=== PATIENT | male | born 1960 | race Caucasian/White ===

== ENCOUNTER 2019-04-05 09:59 | Observation (INO) | payer BC ==
[2019-04-05] MEDS ORDERED: Heparin 2 UNITS/ML IVPREMIX* 2,000 ML IV ONE (12:01)
[2019-04-05 12:02] LABS: BUN/Creatinine Ratio 22.6 (8-20); Calcium 9.7 mg/dL (8.6-10.3); EGFR African American 100.3 (>60); EGFR Non-African American 82.9 (>60); Potassium 4.4 mmol/L (3.5-5.0)
[2019-04-05] MEDS ORDERED: Iohexol 350 (CONTRAST) 200 ML MDV IV ONE (12:02)
[2019-04-05] MEDS ORDERED: Lidocaine 1% INJ* 10 MG/ML 30 ML SDV ONE (12:02)
[2019-04-05] MEDS ORDERED: Heparin(*) 1000 UNIT/ML 10 ML VIAL CATH LAB IV ONE (12:48)
[2019-04-05] MEDS ORDERED: nitroGLYCERIN DRIP* 25,000 MCG/250 ML BTL ONE (12:49)
[2019-04-05] MEDS ORDERED: VERAPAMIL 2.5 MG/ML 2 ML VIAL ** 5 mg/2 ml ONE (12:49)
[2019-04-05] MEDS ORDERED: Midazolam* 1 MG/ML 5 ML VIAL (5 MG) ONE (12:50)
[2019-04-05] MEDS ORDERED: fentaNYL* 50 MCG/ML 2 ML VIAL (100 MCG VIAL) ONE (12:50)
[2019-04-05] MEDS ORDERED: Ticagrelor* 90 MG TAB PO ONE (14:13)
[2019-04-05] MEDS ORDERED: Nitroglycerin TAB 0.4 MG* 0.4 MG TAB SL PRN (15:16)
[2019-04-05] MEDS ORDERED: NS 0.9% 1000 ML** 1,000 ML IV SCH (15:30)
[2019-04-05 16:11] LABS: CRP High Sensitivity 0.72 mg/L (<2.00); HDL Cholesterol 39.7 mg/dL
[2019-04-05] MEDS: Metoprolol Tartrate TAB* 25 MG PO SCH (21:02)
[2019-04-05] MEDS: Ticagrelor* 90 MG TAB PO SCH (21:02)
[2019-04-06 06:45] LABS: BUN/Creatinine Ratio 16.8 (8-20); Calcium 9.7 mg/dL (8.6-10.3); EGFR African American 85.3 (>60); EGFR Non-African American 70.5 (>60); HDL Cholesterol 38.4 mg/dL; Potassium 4.3 mmol/L (3.5-5.0)
[2019-04-06] MEDS ORDERED: Atorvastatin* 40 MG TAB PO SCH (09:00)
[2019-04-06] MEDS ORDERED: Aspirin 81 mg CHEW TAB* 81 MG TAB.CHEW PO SCH (09:00)
[2019-04-06] MEDS ORDERED: Influenza VAC *QUAD* 2019-20* 0.5 ML SYRINGE IM ONE (09:00)
[2019-04-06] MEDS ORDERED: Sertraline* 50 MG TAB PO SCH (09:00)
[2019-04-06] MEDS ORDERED: ATOMOXETINE 25 MG PO SCH (09:00)
[2019-04-06] MEDS ORDERED: Losartan TAB* 25 MG PO SCH (09:00)
[2019-04-06] MEDS: Ticagrelor* 90 MG TAB PO SCH (09:13)
[2019-04-06] MEDS: Metoprolol Tartrate TAB* 25 MG PO SCH (09:14)
[2019-04-06 11:30] VITALS: BP 135/85
--- NOTE | 2019-04-06 13:38 | CATH ---
CC: Dr. Nuñez; Dr. Dow STENT REPORT: DATE OF PROCEDURE: 04/05/19 PRIMARY: Dr. Nuñez. STEEL SHOT HEADER OPERATOR: Dr. Dow. PROCEDURES: Right radial artery access, bilateral selective coronary cineangiography, left heart cat heterization, left ventriculography, stent placement to LAD 3.0 x 12 Synergy drug-eluting stent, post dilated with 3 x 12 NC. HISTORY: A 58-year-old male with functional class I angina, but relatively high risk stress exercise study with precordial ST elevation with mild angina, imaging revealed an anterior as well as inferio r perfusion defect consistent with multivessel disease. PROCEDURE ACCESS: Right radial artery sheath 6-F slender. MEDICATIONS: 1. Subcu lidocaine. 2. IV Versed. 3. IV fentanyl. 4. Heparin 3000 units. 5. Nitroglycerin 300 mcg. 6. Verapamil 3 mg IA. 7. Brilinta 180 mg loading dose. 8. Heparin 4000 units IV. DIAGNOSTIC CATHETER: 5F TIG4, 5F pigtail guiding catheter LAD, 6FVL 3.5 wire 14 BMW used to deploy 3 x 12 Synergy drug-eluting stent in the LAD just beyond the small first diagonal. It was postdilate d with a 3 x 12 NC balloon to 16 atmospheres 30 seconds. HEMODYNAMICS: LV 115/6-14, no aortic valve gradient on pullback. ANGIOGRAPHY: Left Main: The left main is short, large, has no stenosis. LAD: The LAD is large, extends past the apex with JESSENIA II flow, the first diagonal is approximately 2 mm or less in diameter, has proximal 50% stenosis, after the diagonal the LAD has a tubular 80% to 90% stenosis with some haziness. There is mild calcification in the area. The mid LAD supplies a mo derate diagonal, distal LAD has no stenosis. Circumflex: The circumflex is large, not dominant, supplies trivial first marginal and ends with a l arge bifurcated distal marginal. The circumflex has no stenosis. RCA: The RCA is large, has scattered luminal irregularity without significant obstructive disease, t he PDA is large, followed by several smaller posterolaterals. The RCA has no significant stenosis, th ere are transseptal PDA to LAD collaterals. LV gram: There is some underfilling of the left ventricle, there may be mild distal anterolateral hy pokinesis with overall normal LVEF estimated at 55% to 60%. After LAD stent placement and high pressure postdilatation, there is 70% stenosis at the ostium of th e proximal diagonal which has normal flow, was not intervened upon because of small size and normal f low and lack of symptoms. The LAD stented segment is widely patent, distal LAD has JESSENIA III flow. CONCLUSION: 1. Single vessel disease LAD, excellent angiographic result with drug-eluting stent placement. 2. Normal LVEF with questionable minimal anterolateral distal wall motion abnormality. 3. Normal left-sided hemodynamics. 4. Successful right radial artery access. [id number]/[facility] #: [id number]
--- NOTE | 2019-04-06 14:04 | DS ---
AMENDED REPORT NOW INCLUDES DESIGNATED COSIGNER CC: Dr. Brando Nuñez; Dr. Jean Dow * DISCHARGE SUMMARY: DATE OF ADMISSION: 04/05/19 DATE OF DISCHARGE: 04/06/19 PRIMARY PHYSICIAN: Dr. Brando Nuñez. PRIMARY CREAM BUYER: Dr. Jean Dow. ATTENDING PROVIDER: Dr. Jeremiah Aguilar * (DICTATED BY LYLA LAKHANI NP) ADMITTING DIAGNOSES: 1. Abnormal exercise stress test here for elective left heart catheterization. Per medical record, the patient developed non-limiting chest discomfort with exercise and administration of nitroglycerin. ECG revealed 1-mm ST segment elevation in aVR, V1 through V2 and AVL with 3 mm inferior and left V5 through V6 ST depression. Per nuclear imaging, there was a large extensive perfusion defect in the proximal LAD and probable RCA distribution. 2. History of type 2 diabetes, controlled via diet. 3. History of hypertension. 4. History of relative bradycardia. DISCHARGE DIAGNOSES: 1. Newly diagnosed coronary artery disease with abnormal exercise stress test status post drug eluting stent to left anterior descending, now on aspirin 81 mg a day in combination Brilinta 90 mg p.o. b.i.d. The patient has known relative bradycardia and had periods where heart rate was in high 30s to low 40s , thus beta- constance was discontinued. Rosuvastatin was increased to 20 mg. Consideration for referral to Dr. Jorgensen Pneumatic System Conveyor Operator outpatient to be addressed. Hemoglobin A1c was 6.1% on 04/06/19. 2. History of type 2 diabetes: Hemoglobin A1c was 6.1%. The patient is to follow up outpatient. Given newly diagnosed coronary artery disease, consideration for SGLT2 inhibitor is reasonable. 3. History of relative bradycardia. The patient was given metoprolol post stress test yesterday. He has had periods of resting heart rate 39 to 42. He is asymptomatic, his beta-constance therapy has been held. This can be addressed outpatient next week in followup. 4. History of hypertension. We will continue ARB therapy. Our goal blood pressure is less than 130/80 given history of type 2 diabetes. 5. History of hyperlipidemia. LDL is 72. Rosuvastatin increased to 20 mg a day. We will need repeat fasting lipid, lipid panel and liver function test in 6 to 8 weeks' time. PROCEDURE PERFORMED: The patient underwent a left heart catheterization by Dr. Derek Aguilar 04/05/19 due to abnormal exercise nuclear stress test with reproduction of chest pain with ischemic ECG changes. Perfusion imaging revealed large defect involving the proximal LAD and probable RCA distribution with moderate reduction LVEF post stress. He underwent successful 3 x 12 mm drug eluting stent to LAD. LVEF 60% with normal wall motion per notes and patient's medical record. Official left heart cath report has not been transcribed; please refer to dictated report for further information. COMPLICATIONS: None. COURSE OF HOSPITAL STAY: This is a 58-year-old male patient, saw Dr. Jean Dow of our practice due to complaints of indigestion per patient. He was risk stratified for coronary disease on 04/05/19. Per medical record, he exercised for 9 minutes on [place] protocol with appropriate rise in blood pressure. He did have non-limiting chest discomfort that resolved with administration of nitroglycerin. There was positive ischemic ECG changes. Myocardial perfusion imaging per report revealed moderately reduced LVEF post exercise with large extensive perfusion defect involving the proximal LAD and probable RCA distribution. Thus he presented to [facility] for elective left heart catheterization. Prior to having procedure performed, he had basic blood work updated. Sodium was 138, potassium 4.3, creatinine 1.07. He was given metoprolol therapy prior to procedure. He underwent the above mentioned procedure, had successful drug eluting stent placement to LAD and was monitored overnight in the ICU. There have been no events although resting heart rate has been in the high 30s to low 40s, thus metoprolol was discontinued. He remains asymptomatic at this time and denies any complaints of chest pain, right radial axis discomfort. His is at his bedside. Current vital signs; temperature 97.2, heart rate 48, blood pressure 143/82, oxygenation 97% on room air, and respirations 18. He had chemistry profile updated this morning 04/06/19. Potassium 4.3, sodium 138, creatinine 1.07, LDL 72, hemoglobin A1c 6.1%. Rosuvastatin was increased to 20 mg p.o. q. h.s. Right radial access site was evaluated this morning. There is no evidence of hematoma. Cap refill less than 3 seconds. Appropriate sensation with strong right radial pulse palpated. Pending no complications, the patient is to be discharged home in stable condition. FOLLOWUP APPOINTMENT: 1. The patient is to follow up with primary airborne missions systems, Dr. Jean Dow on 04/11/19 at 1:45 p.m. at our [facility] office location. 2. He is to follow up with PCP, Dr. Brando Nuñez in 7 to 10 days. DISCHARGE MEDICATIONS: Includes, 1. Aspirin 81 mg p.o. daily. 2. Brilinta 90 mg p.o. b.i.d. 3. Rosuvastatin 20 mg a day. 4. Losartan 25 mg a day. 5. Strattera 100 mg a day. 6. Sertraline 50 mg a day. 7. Sublingual nitroglycerin 0.4 mg q. 5 min p.r.n. up to 3 doses. DISCHARGE BLOOD WORK TO BE OBTAINED: None. ACTIVITY RESTRICTION: The patient was advised to not lift more than 5 to 10 pounds for 3 to 5 days. He is aware that he may shower but not soak right radial access wound. Free 30-day supply of Brilinta was sent to the outpatient pharmacy at [facility]. I personally spoke with our registered nurse, Roxy Tate with our practice to kindly sent in prescription for aspirin, rosuvastatin, Brilinta to his outpatient pharmacy. I stressed the importance of patient not consuming more than aspirin 81 mg a day in combination with Brilinta due to reducing the efficacy of Brilinta. Dr. Derek Aguilar has personally seen and examined the patient and agrees the above assessment and plan. The patient is in stable condition, to be discharged home. LYLA LAKHANI NP [id number]/[facility] #: [id number] [facility]
== END 2019-04-06 15:00 | disposition home or self-care (01) ==
LOC: CHICATH 09:59 → ICU 15:24
PROVIDERS: ADMIT Internal Medicine Cardiovascular Disease; ATTEND Internal Medicine Cardiovascular Disease
DX: I25.119 Atherosclerotic heart disease of native coronary artery with unspecified angina pectoris (principal); E11.9 Type 2 diabetes mellitus without complications; I10 Essential (primary) hypertension; R00.1 Bradycardia, unspecified; Z79.82 Long term (current) use of aspirin; Z79.899 Other long term (current) drug therapy; E66.01 Morbid (severe) obesity due to excess calories; E78.00 Pure hypercholesterolemia, unspecified; F98.8 Other specified behavioral and emotional disorders with onset usually occurring in childhood and adolescence; R07.9 Chest pain, unspecified; E78.5 Hyperlipidemia, unspecified; R73.01 Impaired fasting glucose
CPT/HCPCS: 36415; 80048; 80061; 83036; 85347; 86141; 87641; 90471; 90686; 93005; 93458; 99156; 99157; A9270-GY; C1725; C1769; C1876; C1887; C9600-LD; G0008; G0378; J1644; J2250; J3010